=== PATIENT | female | born 1985 | race Caucasian/White ===

== ENCOUNTER 2018-04-13 13:34 | Emergency (ER) | payer BC ==
[2018-04-13] MEDS ORDERED: DEXAMETHASONE SOD PHOS INJ 10 MG/1 ML VIAL IM ONE (15:01)
[2018-04-13] MEDS ORDERED: KETOROLAC TROMETHAMINE 60 MG/2 ML SDV IM ONE (15:01)
--- NOTE | 2018-04-13 15:18 | ER Document Report ---
HPI - HPI Pain Level: 4 Context: Patient is a healthy 32-year-old female complaining of pain to her right upper back trapezius area 3 weeks. Pain is aggravated with any movement of her neck and right shoulder. There is no trauma. No fever, radiculopathy or paresthesias Associated Symptoms: None Exacerbated by: Movement Relieved by: Denies Similar symptoms previously: No Recently seen / treated by doctor: No - ROS Systems Reviewed and Negative: Yes All other systems reviewed and negative - CONSTITUTIONAL Constitutional: DENIES: Fever, Chills - MUSCULOSKELETAL Musculoskeletal: REPORTS: Extremity pain - right arm Past Medical History - General Information source: Patient - Social History Smoking Status: Never Smoker Chew tobacco use (# tins/day): No Frequency of alcohol use: None Drug Abuse: None Lives with: Family Family History: Reviewed & Not Pertinent Patient has suicidal ideation: No Patient has homicidal ideation: No - Medical History Medical History: Negative Renal/ Medical History: Denies: Hx Peritoneal Dialysis Past Surgical History: Reports: Hx Section, Hx Cholecystectomy Vertical Provider Document - CONSTITUTIONAL Agree With Documented VS: Yes Exam Limitations: No Limitations - INFECTION CONTROL TRAVEL OUTSIDE OF THE [place] IN LAST 30 DAYS: No - HEENT HEENT: Atraumatic, PERRLA - NECK Notes: Focal tenderness right trapezius muscle group. Positive suboccipital and right periscapular tenderness. - RESPIRATORY Respiratory: Breath Sounds Normal, No Respiratory Distress - BACK Back: Normal Inspection - MUSCULOSKELETAL/EXTREMETIES Musculoskeletal/Extremeties: AIDE TORRES - NEURO Level of Consciousness: Awake, Alert, Appropriate - DERM Integumentary: Warm, Dry, No Rash Course - Re-evaluation Re-evalutation: 04/13/18 15:15 History and physical are consistent with musculoskeletal pain. There is no bony tenderness. No indication for x-rays. No signs of infectious process. No circulatory or respiratory compromise. Toradol and Decadron IM given in ED. Will treat with short course of muscle relaxant and anti-inflammatory medication. Patient encouraged to follow-up with orthopedist for further evaluation and treatment. Patient is agreeable with plan is stable for discharge - Vital Signs Vital signs: Temp Pulse Resp BP Pulse Ox 97.4 F 85 16 99/61 L 100 04/13/18 13:55 04/13/18 13:55 04/13/18 13:55 04/13/18 13:55 04/13/18 13:55 Discharge - Discharge Clinical Impression: Strain of right trapezius muscle Qualifiers: Encounter type: initial encounter Qualified Code(s): S46.811A - Strain of other muscles, fascia and tendons at shoulder and upper arm level, right arm, initial encounter Condition: Stable Disposition: HOME, SELF-CARE Instructions: Toradol Injection ([facility]), Steroid Medication Injection, Ice Packs ([facility]) Additional Instructions: Take medications as prescribed Alternate ice and heat to sore area Recommend topical anesthetic such as Aspercreme with lidocaine Recommend further evaluation and treatment by orthopedist Orthopedic contact info provided [facility] [address], [address] [facility] [address] Prescriptions: Ibuprofen [Motrin 800 Mg Tablet] 800 mg PO Q6H #20 tablet Methocarbamol [Robaxin 500 Mg Tablet] 1,000 mg PO Q6 #30 tablet Tramadol HCl [Ultram 50 mg Tablet] 50 mg PO ASDIR PRN #20 tablet PRN Reason: Referrals: NORBERTO BO PA-C [Primary Care Provider] - Follow up as needed
[2018-04-13 15:35] VITALS: BP 97/69
== END 2018-04-13 15:35 | disposition home or self-care (01) ==
LOC: ER 13:34
DX: S46.811A Strain of other muscles, fascia and tendons at shoulder and upper arm level, right arm, initial encounter (principal); M54.89 Other dorsalgia; X58.XXXA Exposure to other specified factors, initial encounter; Z90.49 Acquired absence of other specified parts of digestive tract
CPT/HCPCS: 99283; 96372; J1885; J1100